=== PATIENT | female | born 1950 | race Caucasian/White ===

== ENCOUNTER 2025-06-25 03:25 | Inpatient (IN) | payer BC, SELFPAY ==
[2025-06-24 20:46] VITALS: BP 123/80
[2025-06-24 20:48] VITALS: BP 123/80
--- NOTE | 2025-06-24 20:58 | ED.GENMED ---
History of Present Illness
<MARGARITA Zapata - Last Filed: 06/25/25 09:32>
General
Chief Complaint: Abdominal Pain
Source: patient
Exam Limitations: none
Time Seen by Provider: 06/24/25 20:47
Nursing documentation reviewed up to this point in time: agreed with
History of Present Illness
History of Present Illness:
pt is a 75 yr old female with past medical history of CLL (followed by banjo repair person outside of this hospital) , E. coli UTI(recent antibiotics several weeks ago) who presents to the ER for evaluation. Patient reports she was out today had pizza
[place]
She reports while driving home she started to feel cramping and nausea. Her daughter was driving and I drove her to her [facility]. While there she had multiple episodes of diarrhea and vomiting. Patient presented here via EMS and had episodes of
incontinence while in the ambulance en route to the hospital. Patient reports her cramps are much better. She is mildly nauseous.
Phy Exam
<MARGARITA Zapata - Last Filed: 06/25/25 09:32>
General Physical Exam
General Presentation: no apparent distress
General age: appears stated age
General Skin: warm and dry
General Habitus: normal
General Mental: alert
General Hydration: appears well hydrated
Gastrointestinal Exam
Gastrointestinal Exam: non tender and soft
Neurological Exam
Neurological Exam: alert and oriented x3
Musculoskeletal Exam
Musculoskeletal Exam: full ROM
Skin Exam
Skin Exam: normal color and warm/dry
Psychiatric Exam
Psychiatric Exam: normal mood/affect
Sepsis
<MARGARITA Zapata - Last Filed: 06/25/25 09:32>
Sepsis Screening
Sepsis Assessment: Sepsis Ruled Out
Sepsis Screen
Sepsis Screen: Sepsis Ruled Out
Date: 06/25/25
Time: 09:32
Course
<MARGARITA Zapata - Last Filed: 06/25/25 09:32>
Orders/Labs/Results
Orders:
Orders
06/24/25 21:37
IV Insert/Care/Rem.- Treatment PRN
Urinalysis Reflex To Culture Urgent
Date Specimen was Collected: 06/25/25
Time Specimen was Collected: 09:28
0.9% Sodium Chloride 1000 ml [Nss] 1,000 ml IV BOLUS
Ondansetron Injectable [Zofran] 4 mg IV NOW STA
06/24/25 21:39
Complete Blood Count/With Diff Urgent
Comprehensive Metabolic Panel Urgent
06/24/25 21:53
Iohexol [Omnipaque] See Protocol PO NOW STA
06/24/25 22:18
Stool Culture Urgent
JEN Source: Feces/Stool
Specimen Description:
Date Specimen was Collected: 06/24/25
Time Specimen was Collected: 22:17
06/25/25 00:02
Add On - Microbiology Urgent
Tests Added?: c diff tox
06/25/25 00:15
CT Abd/pel W Iv And Oral Contr Urgent
Reason For Exam: pain n/v/d
06/25/25 01:20
LevoFLOXacin 500 MG/100 ML [Levaquin] 500 mg in 100 ml IV NOW
MetroNIDAZOLE 500 MG/100 ML [Flagyl 500 mg] 100 ml IV NOW
06/25/25 01:52
Lactic Acid Q4H
Comment: CANCEL 2nd LACTIC ACID IF 1st LACTIC ACID IS LESS THAN 2
06/25/25 02:00
0.9% Sodium Chloride 500 ml [Nss] 500 ml IV 100 mls/hr
06/25/25 02:56
CDIFF [C difficile Antigen & Toxins] Urgent
JEN Source: Feces/Stool
Specimen Description:
06/25/25 03:10
Admit/Transfer Patient As Directed
Co-Sign Provider:
Level of Care: Inpatient admission
Assign to:: Medical/Surgical
Physician / Group: Malik
Diagnosis: Colitis
Reason for Hospitalization: Colitis
Expected length of stay greater than two midnights?: Yes
ELOS- Estimated Length of Stay in days: 3
I certify the patient meets the requirements for IP care: Yes
Ova & Parasites Giardia/Crypto AG [Giardia/Cryptosporidium Ag] Urgent
JEN Source: Feces/Stool
Specimen Description:
PRN Pain Medication Management As Directed
May give lesser potent ordered pain med per pt: Yes
preference::
Protocol:: Medication orders for pain may be administered in a
manner that supports deferring to patient preference
when the pt is:
- Requesting an ordered lesser potent pain medication.
Least to most potent pain medications are defined
as: acetaminophen < NSAID < tramadol < opioids
(morphine, oxycodone, hydromorphone).
- Requesting a lesser dose of the same medication IF
ORDERED.
- Requesting a less intrusive route of administration
if both routes are prescribed by the provider (PO <
IV).
06/25/25 03:11
Code Status As Directed
Resuscitation Status: Full Code
06/25/25 04:22
Acetaminophen [Tylenol] 650 mg PO Q4HPRN PRN
KCl 20 Meq/0.9%Sodchl 1000 ml [NSS with KCL 20 MEQ] 20 meq in 1,000 ml IV 125 mls/hr
Ondansetron Injectable [Zofran] 4 mg IV Q6HPRN PRN
06/25/25 04:22
Activity As Directed
Activity Level: Ambulate
I/O [Intake/ Output] As Directed
Frequency: Per unit guidelines
Pneumatic Compression Sleeves As Directed
Type: Knee high
Vital Signs As Directed
Frequency: Per unit guidelines
Weight As Directed
Frequency: Daily
Oxygen Therapy [O2 Therapy] [RESP] Routine
Titrate/Wean O2 to maintain O2 sat greater than (%): 94
DX Deep Vein Thrombosis Video Routine
06/25/25 Breakfast
BRAT
At Your Request: Full Participation
06/25/25 06:03
Basic Metabolic Panel IN AM
Complete Blood Count/No Diff IN AM
06/25/25 08:00
Bupropion(24Hr)Extended Releas [WELLBUTRIN XL (24 hour extended release)] 150 mg PO DAILY
Lisinopril [Zestril] 5 mg PO DAILY
Loratadine [Claritin] 10 mg PO DAILY
Pantoprazole [Protonix] 40 mg PO DAILY
06/25/25 10:00
MetroNIDAZOLE 500 MG/100 ML [Flagyl 500 mg] 100 ml IV Q12H
06/25/25 22:00
CefTRIAXone [Rocephin] 1,000 mg IV Q24H
06/25/25 22:18
C difficile Antigen & Toxins Urgent
JEN Source: ST
Specimen Description:
Date Specimen was Collected: 06/24/25
Time Specimen was Collected: 22:17
Abnormal Lab Results
06/24/25
21:39
WBC 25.6 H 10^3/uL
(4.8-10.8)
MPV 10.8 H fL
(7.4-10.4)
Abs Immat Gran (auto) 0.2 H 10^3/uL
(0-0.05)
Absolute Lymphs (auto) 14.9 H 10^3/uL
(1.2-3.4)
Absolute Monos (auto) 4.8 H 10^3/uL
(0.1-0.6)
Immature Gran % 0.6 H %
(0-0.5)
Neutrophils % 22.1 L %
(42.2-75.2)
Lymphocytes % 58.3 H %
(20.5-51.1)
Monocytes % 18.6 H %
(1.7-9.3)
Carbon Dioxide 21 L mmol/L
(22-30)
BUN 21 H mg/dl
(7-17)
Glucose 138 H mg/dl
(70-99)
Alkaline Phosphatase 34 L U/L
(38-126)
06/24/25 21:39
06/24/25 21:39
Vital Signs
Initial and Last Documented VS:
Initial Vital Signs
BP
123/80
06/24/25 20:46
Last Documented Vital Signs
Temp Pulse Resp BP Pulse Ox
98.7 F 68 18 134/70 96
06/25/25 07:15 06/25/25 07:15 06/25/25 07:15 06/25/25 07:15 06/25/25 07:15
Crop Research Scientist consulted with Physician
Crop Research Scientist consulted with physician?: Yes (noh )
Name of Physician Consulted: Noh
<Emmanuel Byers MD - Last Filed: 06/25/25 01:23>
Orders/Labs/Results
Orders:
Orders
06/24/25 21:37
IV Insert/Care/Rem.- Treatment PRN
Urinalysis Reflex To Culture Urgent
Date Specimen was Collected: 06/25/25
Time Specimen was Collected: 09:28
0.9% Sodium Chloride 1000 ml [Nss] 1,000 ml IV BOLUS
Ondansetron Injectable [Zofran] 4 mg IV NOW STA
06/24/25 21:39
Complete Blood Count/With Diff Urgent
Comprehensive Metabolic Panel Urgent
06/24/25 21:53
Iohexol [Omnipaque] See Protocol PO NOW STA
06/24/25 22:18
Stool Culture Urgent
JEN Source: Feces/Stool
Specimen Description:
Date Specimen was Collected: 06/24/25
Time Specimen was Collected: 22:17
06/25/25 00:02
Add On - Microbiology Urgent
Tests Added?: c diff tox
06/25/25 00:15
CT Abd/pel W Iv And Oral Contr Urgent
Reason For Exam: pain n/v/d
06/25/25 01:20
LevoFLOXacin 500 MG/100 ML [Levaquin] 500 mg in 100 ml IV NOW
MetroNIDAZOLE 500 MG/100 ML [Flagyl 500 mg] 100 ml IV NOW
06/25/25 01:52
Lactic Acid Q4H
Comment: CANCEL 2nd LACTIC ACID IF 1st LACTIC ACID IS LESS THAN 2
06/25/25 02:00
0.9% Sodium Chloride 500 ml [Nss] 500 ml IV 100 mls/hr
06/25/25 02:56
CDIFF [C difficile Antigen & Toxins] Urgent
JEN Source: Feces/Stool
Specimen Description:
06/25/25 03:10
Admit/Transfer Patient As Directed
Co-Sign Provider:
Level of Care: Inpatient admission
Assign to:: Medical/Surgical
Physician / Group: Malik
Diagnosis: Colitis
Reason for Hospitalization: Colitis
Expected length of stay greater than two midnights?: Yes
ELOS- Estimated Length of Stay in days: 3
I certify the patient meets the requirements for IP care: Yes
Ova & Parasites Giardia/Crypto AG [Giardia/Cryptosporidium Ag] Urgent
JEN Source: Feces/Stool
Specimen Description:
PRN Pain Medication Management As Directed
May give lesser potent ordered pain med per pt: Yes
preference::
Protocol:: Medication orders for pain may be administered in a
manner that supports deferring to patient preference
when the pt is:
- Requesting an ordered lesser potent pain medication.
Least to most potent pain medications are defined
as: acetaminophen < NSAID < tramadol < opioids
(morphine, oxycodone, hydromorphone).
- Requesting a lesser dose of the same medication IF
ORDERED.
- Requesting a less intrusive route of administration
if both routes are prescribed by the provider (PO <
IV).
06/25/25 03:11
Code Status As Directed
Resuscitation Status: Full Code
06/25/25 04:22
Acetaminophen [Tylenol] 650 mg PO Q4HPRN PRN
KCl 20 Meq/0.9%Sodchl 1000 ml [NSS with KCL 20 MEQ] 20 meq in 1,000 ml IV 125 mls/hr
Ondansetron Injectable [Zofran] 4 mg IV Q6HPRN PRN
06/25/25 04:22
Activity As Directed
Activity Level: Ambulate
I/O [Intake/ Output] As Directed
Frequency: Per unit guidelines
Pneumatic Compression Sleeves As Directed
Type: Knee high
Vital Signs As Directed
Frequency: Per unit guidelines
Weight As Directed
Frequency: Daily
Oxygen Therapy [O2 Therapy] [RESP] Routine
Titrate/Wean O2 to maintain O2 sat greater than (%): 94
DX Deep Vein Thrombosis Video Routine
06/25/25 Breakfast
BRAT
At Your Request: Full Participation
06/25/25 06:03
Basic Metabolic Panel IN AM
Complete Blood Count/No Diff IN AM
06/25/25 08:00
Bupropion(24Hr)Extended Releas [WELLBUTRIN XL (24 hour extended release)] 150 mg PO DAILY
Lisinopril [Zestril] 5 mg PO DAILY
Loratadine [Claritin] 10 mg PO DAILY
Pantoprazole [Protonix] 40 mg PO DAILY
06/25/25 10:00
MetroNIDAZOLE 500 MG/100 ML [Flagyl 500 mg] 100 ml IV Q12H
06/25/25 22:00
CefTRIAXone [Rocephin] 1,000 mg IV Q24H
06/25/25 22:18
C difficile Antigen & Toxins Urgent
JEN Source: ST
Specimen Description:
Date Specimen was Collected: 06/24/25
Time Specimen was Collected: 22:17
Abnormal Lab Results
06/24/25
21:39
WBC 25.6 H 10^3/uL
(4.8-10.8)
MPV 10.8 H fL
(7.4-10.4)
Abs Immat Gran (auto) 0.2 H 10^3/uL
(0-0.05)
Absolute Lymphs (auto) 14.9 H 10^3/uL
(1.2-3.4)
Absolute Monos (auto) 4.8 H 10^3/uL
(0.1-0.6)
Immature Gran % 0.6 H %
(0-0.5)
Neutrophils % 22.1 L %
(42.2-75.2)
Lymphocytes % 58.3 H %
(20.5-51.1)
Monocytes % 18.6 H %
(1.7-9.3)
Carbon Dioxide 21 L mmol/L
(22-30)
BUN 21 H mg/dl
(7-17)
Glucose 138 H mg/dl
(70-99)
Alkaline Phosphatase 34 L U/L
(38-126)
06/24/25 21:39
06/24/25 21:39
Vital Signs
Initial and Last Documented VS:
Initial Vital Signs
BP
123/80
06/24/25 20:46
Last Documented Vital Signs
Temp Pulse Resp BP Pulse Ox
98.7 F 68 18 134/70 96
06/25/25 07:15 06/25/25 07:15 06/25/25 07:15 06/25/25 07:15 06/25/25 07:15
<MARGARITA Zapata - Last Filed: 06/25/25 09:32>
MDM/Problems Addressed
MDM/Problems Addressed:
As documented patient is a 75-year-old female with history of CLL presented with nausea vomiting diarrhea and abdominal cramping. While while here patient has had multiple episodes of diarrhea now bloody diarrhea culture sent. She does have a
history of CLL and white count is elevated at 25,000 with no previous labs. No treatment for CLL patient is followed by an oncologist outside his hospital.
With persistent bloody diarrhea CAT scan ordered pending at this time. Care of patient transferred to DR Byers. Patient has history of E. coli UTI last on antibiotics several weeks ago C. difficile culture and stool culture ordered
<MARGARITA Zapata - Last Filed: 06/25/25 09:32>
*Radiology
Radiology exam reviewed: radiology read reviewed
*Pulse Oximetry
SaO2: 96
Oxygen Mode of Delivery: Room air
Patient hypoxic: no
*Critical Care Note
Total Time (30-74mins, 75-104mins- exclusive of procedures): Not Applicable
<Emmanuel Byers MD - Last Filed: 06/25/25 01:23>
Update Note
Update Note:
CT report reviewed and discussed with patient. In light of patient's multiple episodes of bloody diarrhea ED, along with significant leukocytosis as well as CT findings, patient will be admitted for IV antibiotics and IV fluids.
C. difficile toxin and stool culture pending.
ED Attending Note
<MARGARITA Zapata - Last Filed: 06/25/25 09:32>
-
Portions of this chart may have been created with voice recognition software.� Occasional wrong word or��sound alike� substitutions may have occurred due to the inherent limitations of voice recognition software.
Discharge Plan
Departure
Patient Disposition: Admit
Date of Disposition: 06/25/25
Time of Disposition: 01:22
Admit to: Med/Surg
Presentation/result/management discussed w/ accepting MD/DO: Hospitalist
Discharge Problem:
Colitis
Interventions
Interventions:
*Risk Screen - Suicide Last Done: 06/24/25 20:48
*General Assessment Last Done: 06/24/25 20:48
*Neglect/Abuse Screening Last Done: 06/24/25 20:48
*ED- Fall Risk Assessment Last Done: 06/24/25 20:48
*ED COVID-19 Vaccine History Last Done: 06/25/25 04:36
*Nursing Disposition Last Done: 06/25/25 04:18
CQ-Gelcvj-Rmawfqejru Assessment Last Done: 06/24/25 21:23
Discharge Date and Time
Discharge Date/Time: 06/25/25 04:18
[2025-06-24 21:02] VITALS: BP 144/73
[2025-06-24 21:22] VITALS: BMI 21.9
[2025-06-24 21:37] VITALS: BP 124/66
[2025-06-24] MEDS: NSS 1000 IV (21:39)
[2025-06-24] MEDS: ZOFRAN 4 MG IV (21:43)
[2025-06-24 21:55] LABS: Hematocrit 40.0 % (37.0-47.0); Hemoglobin 13.8 g/dL (12.0-16.0); Mean Corp Hgb Conc. 34.5 g/dL (33.0-37.0); Mean Corpuscular Volume 89.7 fL (81.0-99.0); Platelet Count 210 10^3/uL (130-400); Red Cell Dist. Width 13.4 % (11.5-14.5)
[2025-06-24 22:00] VITALS: BP 134/74
[2025-06-24] MEDS: OMNIPAQUE 50 ML PO (22:14)
[2025-06-24 22:16] LABS: ALT (SGPT) 24 U/L (0-35); AST (SGOT) 30 U/L (14-36); Albumin 4.8 g/dl (3.5-5.0); Alkaline Phosphatase 34 U/L (38-126); Blood Urea Nitrogen 21 mg/dl (7-17); Calcium 9.6 mg/dl (8.4-10.2); Carbon Dioxide 21 mmol/L (22-30); Chloride 105 mmol/L (98-107); Estimated Creatinine Clearance 49 ml/min; Glucose 138 mg/dl (70-99); Potassium 3.5 mmol/L (3.5-5.1); Sodium 138 mmol/L (135-145); Total Protein 7.5 g/dl (6.3-8.2); eGFR > 60.00
[2025-06-24 22:20] LABS: Nucleated Red Blood Cells % 0.1 %
[2025-06-24 23:00] VITALS: BP 123/68
[2025-06-25] VITALS (10 sets, daily range): BP systolic 123–165; BP diastolic 67–87; BMI 21.7
[2025-06-25] MEDS: NSS 500 IV (01:43)
[2025-06-25] MEDS: LEVAQUIN 100 IV (01:43)
[2025-06-25] MEDS: FLAGYL 500 MG 100 IV ×2 (02:47→09:36)
--- NOTE | 2025-06-25 03:13 | HPS.HSE ---
Family Physician
-
Family Physician: NOT KNOW UNKNOWN - PT DOES
Chief Complaint
-
N/V/D
History of Present Illness
Patient is a 75y F with PMH significant for CLL who presents to ED complaining of crampy abdominal pain, diaphoresis and N/V/D. Patient states that she has been feeling well until this evening. Patient states that she felt sweaty and flushed
this evening on her way home from dinner - around 7:30 PM. She stopped at a restaurant and went into the bathroom where she had multiple episodes of N/V/D. She was somewhat lightheaded and diaphoretic. Patient felt like she was in there only a
brief time; however, daughter noted that she was in the bathroom for quite a long time and 911 was called. Patient was hypotensive on initial assessment by EMS. She was brought to the ED for further evaluation.
Patient states that she had non-bloody emesis and multiple, watery, non-bloody stools.
Patient had brunch consisting of crepes and dinner of pizza today with multiple friends - none of whom have developed similar symptoms.
She also notes that she was swimming in the [place] today - also with her group of friends.
Patient has had issues recently with resistant E coli urinary tract infections.
She has been seen by Infectious Disease at [facility] (she lives in [place]) and has a Rx for fosfomycin that she takes for new urinary symptoms.
She took a dose of fosfomycin most recently on 06/12 for dysuria and frequency. Her urinary symptoms improved and she denies ay at present.
She was also started on IVIG infusions monthly about 6 months ago - her most recent infusion was this past Thursday.
Medical History
Past Medical History
Past Medical History: Reports Other
Additional Past Medical History:
CLL
Hypertension
Recurrent UTI
Past Surgical History: Reports Other
Additional Past Surgical History:
T&A
Social History
Tobacco: Non-smoker
Alcohol: Occasional
Drug: None
Family History
Family History: Not pertinent
Allergies / Home Medications
Allergies reflects when Allergies were last updated in [employer].
Home Medications with original date entered in [employer]
Allergy/Medication List:
Allergies
Allergy/AdvReac Type Severity Reaction Status Date / Time
No Known Allergies Allergy Unverified 06/24/25 20:47
Home Medications
Vitamin D3 PO DAILY 06/25/25
alendronate 5 mg tablet mg PO WEEKLY 06/25/25
bupropion HCl 75 mg tablet 150 mg PO DAILY 06/25/25
lisinopril 5 mg tablet 5 mg PO DAILY 06/25/25
loratadine 10 mg tablet (Claritin) 10 mg PO DAILY 06/25/25
vitamin B complex cap PO DAILY 06/25/25
Review of Systems
-
History Source: Patient
A 12 point ROS was completed and negative except as noted: Yes
Constitutional: Reports Fatigue and Chills; Denies Fever
EENT: Denies Sore Throat
Respiratory: Denies Cough or Trouble Breathing
Cardiac: Reports Diaphoresis; Denies Chest Pain or Palpitations
Abdomen/GI: Reports Abdominal Pain, Nausea, Vomiting and Diarrhea; Denies Bloody Stools or Black Stools
: Denies Dysuria, Frequency or Flank Pain
Musculoskeletal: Denies Joint Pain or Edema
Neurological: Denies Dizzy or Headache
Psych: Denies Depression or Anxiety
Physical Exam
Vital Signs
Vital Signs
Temp Pulse Resp BP Pulse Ox
97.9 F 77 14 165/87 99
06/24/25 20:48 06/25/25 02:00 06/25/25 02:00 06/25/25 02:00 06/24/25 20:49
Physical Exam
General: Other (75y F appears fatigued.)
HEENT: Other (Dry MM. Neck supple.)
Respiratory: Clear; No Wheezes, Rales or Rhonchi
Cardiac: S1/S2 and Regular Rhythm; No Murmur
GI: Other (Abdomen is soft. Mildly, diffusely tender. Pos BS.)
Musculoskeletal: No Clubbing, No Cyanosis and No Edema
Neuro: AO x 3
Laboratory Results
-
06/24/25 21:39
06/24/25 21:39
Laboratory Results
Lactic Acid 0.7 mmol/L (0.7-2.0) 06/25/25 01:52
Total Bilirubin 0.7 mg/dl (0.2-1.3) 06/24/25 21:39
AST 30 U/L (14-36) 06/24/25 21:39
ALT 24 U/L (0-35) 06/24/25 21:39
Alkaline Phosphatase 34 U/L (38-126) L 06/24/25 21:39
Impression/Plan
-
A/P: Patient is a 75y F with PMH significant for CLL and recurrent UTI who presents to ED complaining of N/V/D.
Pancolitis
- Admit for further evaluation and treatment.
- Stool studies are pending - will add CDiff given recent abx and O&P given recent river water exposure (though that was just earlier today).
- Continue abx with ceftriaxone and Flagyl pending stool studies / culture data.
- Supportive care with IVFs, antiemetics, etc.
- BRAT diet as tolerated.
- Follow for clinical improvement.
Recurrent UTIs
Abnormal CT
- CT scan in the ED this evening also shows abnormal R kidney enhancement concerning for pyelnonephritis.
- ? if this could reflect change from recent / recurrent infection?
- Patient without current urinary symptoms, flank pain, etc.
- Abx as noted above. Follow-up urinalysis +/- culture.
CLL
- Chronic leukocytosis with recent baseline WBC around 14 per patient.
- On IVIG monthly for recurrent infections as noted above.
- Follow-up with Hematology at [facility] after discharge.
DVT Prophylaxis: SCDs
Code Status: Full
[2025-06-25] MEDS: NSS with KCL 20 MEQ 1000 IV ×3 (05:15→20:47)
[2025-06-25 07:16] LABS: Hematocrit 36.6 % (37.0-47.0); Hemoglobin 12.5 g/dL (12.0-16.0); Mean Corp Hgb Conc. 34.2 g/dL (33.0-37.0); Mean Corpuscular Volume 89.5 fL (81.0-99.0); Platelet Count 173 10^3/uL (130-400); Red Cell Dist. Width 13.6 % (11.5-14.5)
[2025-06-25] MEDS: CLARITIN PO ×2 (07:26→09:07)
[2025-06-25] MEDS: WELLBUTRIN XL (24 hour extended release) PO ×2 (07:26→09:07)
[2025-06-25] MEDS: PROTONIX PO ×2 (07:26→09:07)
[2025-06-25] MEDS: ZESTRIL PO ×2 (07:26→09:07)
[2025-06-25] MEDS: ZOFRAN 4 MG IV ×2 (07:32→20:41)
[2025-06-25 07:49] LABS: Blood Urea Nitrogen 15 mg/dl (7-17); Calcium 8.0 mg/dl (8.4-10.2); Carbon Dioxide 20 mmol/L (22-30); Estimated Creatinine Clearance 74 ml/min; Glucose 131 mg/dl (70-99); Potassium 4.2 mmol/L (3.5-5.1); Sodium 135 mmol/L (135-145); eGFR > 60.00
[2025-06-25 07:53] LABS: Chloride 107 mmol/L (98-107)
[2025-06-25] MEDS: BENTYL 20 MG IM (08:36)
--- NOTE | 2025-06-25 09:19 | CM ---
CM reviewed chart. Pt arrived from home, is I/AMB and ADLs and will have no home needs at dc.
Should pts needs change prior to dc, please consult ISAIAH/DIDIER.
Will continue to follow.
[2025-06-25 09:44] LABS: Urine Character Clear (Clear)
[2025-06-25 10:31] LABS: Urine White Cell 0-2 /HPF (0-5)
--- NOTE | 2025-06-25 11:18 | CON.GI ---
Consultation
-
Date/Time Consultation Requested: 06/25/25 11:02
Date/Time Consultation Performed: 06/25/25 1118
Requesting Provider: Reji Aponte
Performing Provider: Enmanuel Huertas
Reason for Consultation: Hematochezia, pancolitis, (-) C Diff
Medical History
Chief Complaint / HPI
Chief Complaint: N/V/D
History of Present Illness:
Ms. Hightower is a 75 y.o female with a past medical history significant for CLL who presented to the ED with abdominal pain along with nausea/vomiting and initially non-bloody diarrhea. Found to have pancolitis with greatest involvement from the
splenic flexure to the sigmoid colon concerning for infectious colitis. Gastroenterology has been consulted for further evaluation and management.
Patient states she was in her [place] until last evening when she began to feel flushed and sweaty. Denies any recent sick contacts or other fevers or chills. Symptoms started after eating pizza with friends/family where she later developed multiple
episodes of nausea and vomiting as well as nonbloody diarrhea. She felt lightheaded and weak and felt as though she was going to pass out but denies any loss of consciousness. She has never had symptoms like this in the past. Does also note
[place] well with a group of friends. She continues to have significant nonbloody watery diarrhea at the restaurant prompting her to call EMS where she presented to the ER for further evaluation. She denies any chronic
diarrhea, bloody stools, previous abdominal pain or other chronic GI symptoms. She previously underwent a colonoscopy approximately 2 months ago at where she follows closely with her care which was unremarkable. She also
underwent a prior EGD at that time as well which was also unremarkable. She is not on any blood thinners and denies any NSAIDs. Of note, she does have a history of CLL and receives IVIG infusions on a monthly basis and felt to be in remission.
She also follows closely with ID at [facility] due to concern for previous resistant E. coli UTIs. She denies any current symptoms at present. Currently, she is still experiencing ongoing abdominal cramping and recently developed bloody stools
consistent with hematochezia. Otherwise, denies any further fevers or chills.
In the ED, patient was afebrile and HD-stable. Labs notable for BUN 21 and Tax Lawyer 0.9 and normal LFTs. CBC with WBC 25.6, Hgb 13.8, and plts 210. CT Abd/pelvis revealed wall thickening and enhancement diffusely involving the colon, greatest involvement
from the splenic flexure through the sigmoid colon. Findings suggest colitis, most likely infectious colitis. Additionally, patchy areas of decreased enhancement within the right kidney, highly suggestive of pyelonephritis without any evidence for
abscess. Stool studies were obtained and patient was started on empiric IV abx and admitted to medicine for further management.
Past Medical History
Past Medical History: Other (HTN, recurrent UTI, CLL (on IVIG infusions))
Past Surgical History: Other (T&A)
Social History
Tobacco: Non-Smoker
Alcohol: Occasional
Drug: None
Family History
Family History: Reviewed & Not Pertinent
Allergies / Home Medications
Allergy/AdvReac Type Severity Reaction Status Date / Time
No Known Allergies Allergy Unverified 06/24/25 20:47
�Medication �Instructions �Recorded
Vitamin D3 PO DAILY Supplement 06/25/25
alendronate 70 mg tablet 70 mg PO WEEKLY@06 Osteoperosis 06/25/25
bupropion HCl 75 mg tablet 150 mg PO DAILY Depression 06/25/25
lisinopril 5 mg tablet 5 mg PO DAILY Blood Pressure 06/25/25
loratadine 10 mg tablet (Claritin) 10 mg PO DAILY Allergies 06/25/25
vitamin B complex 1 cap PO DAILY Supplement 06/25/25
Review of Systems
-
All other systems: A 12 pt ROS was Negative except as stated above in HPI
Vital Signs
Temp Pulse Resp BP Pulse Ox
98.7 F 68 18 134/70 96
06/25/25 07:15 06/25/25 07:15 06/25/25 07:15 06/25/25 07:15 06/25/25 09:32
Physical Exam
Exam
General: Well Developed, No Apparent Distress and Comfortable
HEENT: Anicteric and Moist Mucous Membranes
Respiratory: Other (Normal WOB on room air)
GI: Soft, Non Distended and Tender (Mild tenderness throughout without any involuntary guarding or rebound tenderness)
Skin: Warm and Dry
Neuro: Nonfocal/Grossly Intact
Psych: Calm
Results
WBC 19.2 10^3/uL (4.8-10.8) H 06/25/25 06:03
Hgb 12.5 g/dL (12.0-16.0) 06/25/25 06:03
Hct 36.6 % (37.0-47.0) L 06/25/25 06:03
MCV 89.5 fL (81.0-99.0) 06/25/25 06:03
Plt Count 173 10^3/uL (130-400) 06/25/25 06:03
Absolute Neuts (auto) 5.7 10^3/uL (1.4-6.5) 06/24/25 21:39
Sodium 135 mmol/L (135-145) 06/25/25 06:03
Potassium 4.2 mmol/L (3.5-5.1) 06/25/25 06:03
Chloride 107 mmol/L (98-107) 06/25/25 06:03
Carbon Dioxide 20 mmol/L (22-30) L 06/25/25 06:03
BUN 15 mg/dl (7-17) 06/25/25 06:03
Creatinine 0.6 mg/dL (0.6-1.0) 06/25/25 06:03
Calcium 8.0 mg/dl (8.4-10.2) L D 06/25/25 06:03
Total Bilirubin 0.7 mg/dl (0.2-1.3) 06/24/25 21:39
AST 30 U/L (14-36) 06/24/25 21:39
ALT 24 U/L (0-35) 06/24/25 21:39
Alkaline Phosphatase 34 U/L (38-126) L 06/24/25 21:39
Diagnostic Image Results: As above. No prior EGD/Colon records for review
Assessment / Plan
-
Ms. Hightower is a 75 y.o female with a past medical history significant for CLL who presented to the ED with abdominal pain along with nausea/vomiting and initially non-bloody diarrhea. Found to have pancolitis with greatest involvement from the
splenic flexure to the sigmoid colon concerning for infectious colitis. Gastroenterology has been consulted for further evaluation and management.
#Pancolitis likely 2/2
#Acute Infectious and #Ischemic
#Bloody Stools
#Nausea/Vomiting
#Hx of CLL (on IVIG Infusions)
#Hx of Resistant E coli (f/w ID)
Impression: Patient presenting with abdominal cramping/discomfort along with nausea/vomiting and initial nonbloody, watery diarrhea found to have pancolitis on CT imaging concerning for acute, infectious colitis. Now with recent progression of
bloody stools along with abdominal cramping. Etiology of symptoms seems most consistent with infectious colitis likely secondary to her prior [place] yesterday afternoon and much less likely related to contaminated food as
without any other sick contacts. Additionally, suspect some component of superimposed ischemic colitis as well given the progression of bloody stools and she was hypotensive when evaluated by EMS on arrival along with her CT imaging demonstrating
marked thickening within the splenic flexure further suggestive of potential ischemic component given watershed involvement of splenic flexure. No concern for inflammatory bowel disease as without any chronicity of symptoms and she previously notes
a prior colonoscopy approximately 2 months ago which was normal at . For now, I would continue empiric IV antibiotics as she is somewhat immunosuppressed given her history of his CLL and receives monthly IVIG infusions. Favor
broadening to IV Zosyn along with continuing IVF to maintain euvolemia and avoiding periods of hypotension.
Recommendations:
- Okay with CLD, defer from advancing today
- Await stool culture and stool O&P, C Diff (-)
- Agree with IV abx given her marked leukocytosis, age and some concern for immunocompromise given her hx of CLL and receives IVIG infusions
- Favor broadening to IV Zosyn 3.375 mg q 6 hours given her hx of prior c/f ESBL
- However, would d/c IV abx if stool culture reveals shiga-toxin producing organism as abx can result in worsening symptoms
- Continue IVF to maintain euvolemia and avoid periods of hypotension given c/f superimposed ischemic colitis
- No plans for a colonoscopy at this time and previous colonoscopy was normal approximately 2 months ago at
- She may follow-up with her primary [employer]er as an outpatient at [facility]
- May use oral Bentyl as needed for spasms/cramps
- Pain control and IV anti-emetics PRN
- Rest of ongoing supportive care as per primary team
Discussed with primary internal medicine team. GI will continue to follow. Please call with any questions or concerns.
Data Reviewed
-
Radiology: Image Personally Visualized and interpreted and Report Reviewed by me
CT Scan: Image Personally Visualized and interpreted and Report Reviewed by me
-
-
Thank you for consultation and allowing me to participate in the patient's care. Please call the electronic maintenance supervisor GI physician during the after hours with any questions or concerns.
[2025-06-25] MEDS: BENTYL 20 MG PO ×2 (11:57→17:03)
[2025-06-25] MEDS: ZOSYN 100 IV ×3 (12:25→23:28)
--- NOTE | 2025-06-25 13:16 | W.PN.UPDATE ---
Update Note
Progress Note Update
Hospitalist H&P from 0313 this morning. I independently evaluated the patient at the bedside. I reviewed the patient's chart. I discussed medical updates with the patient's family at the bedside
71-year-old female with CLL on IVIG, HTN, recurrent UTI with resistant E. coli that presented to the ED with intractable nausea and vomiting, frequent hematochezia that started yesterday. [place] to
symptoms starting. Mentions ingesting some river water from her memory. Also with possible food exposures though group of people she was with did not develop symptoms. AFVSS while here, labs stable. CT A/P showed signs of pancolitis with
greatest involvement of the splenic flexure. Stool cultures, stool O&P obtained and started on IV ceftriaxone and Flagyl in the ED. C. difficile testing ultimately was negative.
Patient states she still feels unwell though slightly improved by time of my evaluation. Cramping abdominal pain responded to dicyclomine
AAO x 4, appears unwell though nontoxic. No FND or cranial nerve deficits. Cardiopulmonary exam benign. Generalized abdomen tenderness without peritoneal signs, otherwise soft and nondistended, slightly reduced bowel sounds. No edema, 2+ pulses,
no rashes, skin warm and dry
Acute gastroenteritis/colitis. Differentials include infectious etiology versus ischemic colitis, may also be multifactorial. C. difficile testing negative, very low suspicion for IBD. CT demonstrated pancolitis with greatest involvement near
splenic flexure. Patient with hypotensive symptoms prior to worsening bowel status. Was started on IV ceftriaxone and Flagyl upon arrival following stool cultures and O&P. Will transition to IV Zosyn, after discussing with gastroenterology, to
cover for resistant species. Follow stool cultures, consider stopping antibiotics if cultures show STEC. Trend CBC and temperature curve, monitor bowel status. Continue maintenance IV fluids and antiemetics. Continue as needed dicyclomine.
Likely will need OP scope unless develops worsening bleeding
CLD pending clinical improvement
SCDs
Full code
Expected discharge in 24 to 48 hours
[2025-06-25] MEDS: TYLENOL 650 MG PO (21:00)
--- NOTE | 2025-06-26 05:41 | W.PN.GI.CBS2 ---
Today's Communication / Plan
-
Continue CLD and favor ongoing IV abx. No plans for a colonoscopy at this time as previously normal 2 months ago. Continue rest of ongoing supportive care as detailed below. GI will continue to follow.
Assessment / Plan
-
Ms. Hightower is a 75 y.o female with a past medical history significant for CLL who presented to the ED with abdominal pain along with nausea/vomiting and initially non-bloody diarrhea. Found to have pancolitis with greatest involvement from the
splenic flexure to the sigmoid colon concerning for infectious colitis. Gastroenterology has been consulted for further evaluation and management.
#Pancolitis likely 2/2
#Acute Infectious and #Ischemic
#Bloody Stools
#Nausea/Vomiting
#Hx of CLL (on IVIG Infusions)
#Hx of Resistant E coli (f/w ID)
Impression: Patient presenting with abdominal cramping/discomfort along with nausea/vomiting and initial nonbloody, watery diarrhea found to have pancolitis on CT imaging concerning for acute, infectious colitis. Now with recent progression of
bloody stools along with abdominal cramping. Etiology of symptoms seems most consistent with infectious colitis likely secondary to [place] and much less likely related to contaminated food as
without any other sick contacts. Additionally, suspect some component of superimposed ischemic colitis as well given the progression of bloody stools and she was hypotensive when evaluated by EMS on arrival along with her CT imaging demonstrating
marked thickening within the splenic flexure further suggestive of potential ischemic component given watershed involvement of splenic flexure. No concern for inflammatory bowel disease as without any chronicity of symptoms and she previously notes
a prior colonoscopy approximately 2 months ago which was normal at [facility]. For now, I would continue empiric IV antibiotics as she is somewhat immunosuppressed given her history of his CLL and receives monthly IVIG infusions. Favor
broadening to IV Zosyn along with continuing IVF to maintain euvolemia and avoiding periods of hypotension.
Recommendations:
- Okay with CLD, defer from advancing today
- C Diff (-), cryptosporidium/giardia (-), pending stool culture
- Agree with IV abx given her marked leukocytosis, age and some concern for immunocompromise given her hx of CLL and receives IVIG infusions
- Continue empiric IV Zosyn 3.375 mg q 6 hours given her hx of prior c/f ESBL
- However, would d/c IV abx if stool culture reveals shiga-toxin producing organism (ie STEC, etc) as abx can result in worsening symptoms
- Continue IVF to maintain euvolemia and avoid periods of hypotension given c/f superimposed ischemic colitis
- No plans for a colonoscopy at this time and previous colonoscopy was normal approximately 2 months ago at [facility]
- She may follow-up with her primary Street Worker as an outpatient at [place]
- May use oral Bentyl as needed for spasms/cramps
- Pain control and IV anti-emetics PRN
- Rest of ongoing supportive care as per primary team
GI will continue to follow. Please call with any questions or concerns.
Subjective
Subjective
Date of Service: June 26, 2025
- No acute events overnight
- C Diff (-), cryptosporidium/giardia (-), pending stool culture
- Otherwise, no acute events overnight
Resting comfortably in bed, still with lower abdominal pain but denies any worsening symptoms. Having ongoing diarrhea, but more formed brown stool and less blood. No other fevers, chills or other constitutional symptoms.
Objective
Data Reviewed
Laboratory Data:
Laboratory Results
06/25/25 06:03
06/25/25 06:03
Laboratory Results
Total Bilirubin 0.7 mg/dl (0.2-1.3) 06/24/25 21:39
AST 30 U/L (14-36) 06/24/25 21:39
ALT 24 U/L (0-35) 06/24/25 21:39
Alkaline Phosphatase 34 U/L (38-126) L 06/24/25 21:39
Vital Signs and I&O:
Vital Signs
Temp Pulse Resp BP Pulse Ox
99.2 F 64 17 138/75 95
06/25/25 23:10 06/25/25 23:10 06/25/25 23:10 06/25/25 23:10 06/25/25 23:10
I&O
06/24/25 06/25/25 06/26/25
06:59 06:59 06:59
Intake Total 1020 / 1020
Balance 1020 / 1020
Physical Exam
Physical Exam
HEENT: Anicteric and Moist mucous membranes
Pulmonary: Other (Normal WOB on room air)
GI: Soft, Non Distended and Tender (Mild to moderate tenderness with voluntary guarding; no rebound tenderness or involuntary guarding)
Extremities: No Edema
Neuro: Non Focal
[2025-06-26 05:54] VITALS: BMI 22.6
[2025-06-26] MEDS: BENTYL 20 MG PO ×3 (05:54→18:45)
[2025-06-26] MEDS: ZOSYN 100 IV ×4 (05:54→23:24)
[2025-06-26] MEDS: NSS with KCL 20 MEQ 1000 IV (05:55)
[2025-06-26 07:07] LABS: Hematocrit 33.9 % (37.0-47.0); Hemoglobin 11.7 g/dL (12.0-16.0); Mean Corp Hgb Conc. 34.5 g/dL (33.0-37.0); Mean Corpuscular Volume 88.7 fL (81.0-99.0); Platelet Count 142 10^3/uL (130-400); Red Cell Dist. Width 13.9 % (11.5-14.5)
[2025-06-26 07:30] VITALS: BP 141/73
[2025-06-26 07:37] LABS: ALT (SGPT) 18 U/L (0-35); AST (SGOT) 23 U/L (14-36); Albumin 3.2 g/dl (3.5-5.0); Alkaline Phosphatase 34 U/L (38-126); Blood Urea Nitrogen 4 mg/dl (7-17); Calcium 7.7 mg/dl (8.4-10.2); Carbon Dioxide 23 mmol/L (22-30); Chloride 108 mmol/L (98-107); Estimated Creatinine Clearance 74 ml/min; Glucose 148 mg/dl (70-99); Potassium 3.6 mmol/L (3.5-5.1); Sodium 134 mmol/L (135-145); Total Protein 5.6 g/dl (6.3-8.2); eGFR > 60.00
[2025-06-26 07:50] LABS: Absolute Neutrophils -Man Diff 13.5 10^3/uL (1.4-6.5); Platelets Checked Yes
[2025-06-26 07:51] LABS: Normal RBC Morphology Yes; Total Cells Counted 100
[2025-06-26] MEDS: WELLBUTRIN XL (24 hour extended release) 150 MG PO (09:41)
[2025-06-26] MEDS: CLARITIN 10 MG PO (09:41)
[2025-06-26] MEDS: ZESTRIL 5 MG PO (09:41)
[2025-06-26] MEDS: PROTONIX 40 MG PO (09:41)
[2025-06-26] MEDS: TYLENOL 650 MG PO ×2 (09:42→18:45)
--- NOTE | 2025-06-26 13:04 | CON.ID ---
Consultation
-
Date/Time Consultation Requested: June 26, 2025 1125
Date/Time Consultation Performed: June 26, 2025 1310
Requesting Provider: Dr. Dustin Diaz
Performing Provider: Dr. Gladys Sibley
Reason for Consultation: Infectious Colitis
Chief Complaint / Past History
Chief Complaint
Bloody diarrhea
History of Present Illness
History obtained from the patient as well as from her daughter at bedside. She has history of CLL on monthly IVIG, recurrent ESBL�E. coli UTI who lives in [facility] and came up to visit her daughter in [place] over the weekend. On
Thursday, June 24, they went to [facility] and spent the day innertubing in the [facility]. That evening they had pizza, at a restaurant, which everybody shared. Afterwards on the way home, patient felt sweaty and had to stop at
[employer]. No fevers. She had nausea, vomiting, abdominal cramping, multiple bloody diarrhea. No one else in the group sick. She felt dizzy. Blood pressure was low in the 70s. She was therefore directed to come to the hospital. White count
25.6, her baseline being 12-13. CT of the abdomen pelvis showed pancolitis, worse from splenic feck flexure to the sigmoid colon. She received levofloxacin/metronidazole in the ER then changed to Zosyn. She reports yesterday stool was all liquid
blood. Today there is some brown liquid stool mixed with the blood. She still has cramping abdominal pain slightly better. No further nausea. She never had fevers. Currently no urine symptoms, no flank pain.
Past History
Additional Past Medical History:
CLL, monthly IVIG
HTN
ESBL-E.coli recurrent UTI
Allergy History:
No Known Allergies Allergy (Unverified 06/24/25 20:47)
Medications Reviewed: Yes
Current Antibiotics:
Zosyn d2
Social History
Tobacco: Non-Smoker
Alcohol: Occasional
Drug: None
Employment: Employed (Part-time office work)
Family History
Family History: Not Pertinent
Review of Systems
Review of Systems
General: Change in Appetite and Other (+ sweats); Negative Fever or Chills
HEENT: Negative Stiff Neck, Sinus Problems, Headache or Pharyngitis
Cardiovascular: Negative Chest Pain or Dyspnea
Respiratory: Negative Dyspnea or Cough
Gasteroenterology: Diarrhea
Genital / Urological: Negative Dysuria, Hematuria or Flank Pain
Endocrine: Weakness
Musculoskeletal: Negative Arthralgias or Myalgias
Skin / Hair / Nails: Negative Rash
All systems: All other systems were reviewed and were negative
Vital Signs
Temp Pulse Resp BP Pulse Ox
98.8 F 66 16 141/73 93
06/26/25 07:30 06/26/25 09:41 06/26/25 07:30 06/26/25 09:41 06/26/25 07:30
Physical Exam
Physical Exam
Constitutional: No Acute Distress and Non-toxic
Head: Other (No frontal or maxillary sinus tenderness)
Eyes: No Conjunctival Hemorrhage and Sclera Anicteric
Cardiovascular: Regular Rate and S1/S2
Pulmonary: Clear
Gastrointestinal: Soft, Tender (diffuse), Distended (mild) and Normal Bowel Sounds
Genito-Urinary: Negative CVA Tenderness
Extremities: Negative Edema
Musculoskeletal: Negative Spinal Tenderness
Neurological: AO x 3
Lab / Diagnostic Study Results
06/26/25 06:53
06/26/25 06:53
Abs Immat Gran (auto) 0.2 10^3/uL (0-0.05) H 06/24/25 21:39
Absolute Neuts (auto) 5.7 10^3/uL (1.4-6.5) 06/24/25 21:39
Absolute Lymphs (auto) 14.9 10^3/uL (1.2-3.4) H 06/24/25 21:39
Absolute Monos (auto) 4.8 10^3/uL (0.1-0.6) H 06/24/25 21:39
Absolute Basos (auto) 0.1 10^3/uL (0-0.2) 06/24/25 21:39
Total Counted 100 06/26/25 06:53
Immature Gran % 0.6 % (0-0.5) H 06/24/25 21:39
Neutrophils % 22.1 % (42.2-75.2) L 06/24/25 21:39
Lymphocytes % 58.3 % (20.5-51.1) H 06/24/25 21:39
Monocytes % 18.6 % (1.7-9.3) H 06/24/25 21:39
Eosinophils % 0.1 % (0-6) 06/24/25 21:39
Basophils % 0.3 % (0-2) 06/24/25 21:39
Abs Neuts (Manual) 13.5 10^3/uL (1.4-6.5) H 06/26/25 06:53
Segmented Neutrophils 60 % (42-75) 06/26/25 06:53
Band Neutrophils 1 % (0-3) 06/26/25 06:53
Lymphocytes (Manual) 32 % (20-51) 06/26/25 06:53
Lactic Acid Cancelled 06/25/25 05:30
Ur Squamous Epith Cells 3-5 /LPF (Few) 06/25/25 09:39
Microbiology Results
Micro:
06/24/25 22:18 Salmonella/Shigella Culture - Preliminary
Feces/Stool Culture in Progress
Campylobacter Culture - Preliminary
Culture in Progress
Shiga Toxin Test - Final
No E. coli Shiga Toxin 1 or 2 detected.
06/24/25 22:18 Cryptosporidium/Giardia - Final
Feces/Stool Negative for Cryptosporidium and/or Giardia Lamblia
antigens.
06/25/25 22:18 C. difficile GDH Antigen & Toxins - Final
Feces/Stool Negative for toxigenic C.difficile
06/25/25 CT a/p: Wall thickening and enhancement diffusely involving the colon, greatest involvement from the splenic flexure through the sigmoid colon. Findings suggest colitis, most likely infectious colitis. Inflammatory bowel disease would be the
main differential consideration. Patchy areas of decreased enhancement within the right kidney, highly suggestive of pyelonephritis. No evidence for abscess.
Assessment / Plan
# Pancolitis
# N/V Bloody diarrhea
# Relative leukocytosis
# Hx of CLL on monthly IVIg
- C. diff neg
- Shiga-toxin negative
- Stool cx pending including Salmonella, Shigella, Campylobacter.
- Will add-on norovirus
- To consider Aeromonas vs vibrio parahaemolyticus gasteroenteritis.
- Continue Zosyn for now. Consider de-escalate to ceftriaxone.
- Follow wbc, stool output
# Hx recurrent MDR ESBL-Ecoli UTI
- currently no urine sxs, no flank pain - does not correlate with CT finding of right 'pyelonephritis'
- of note, gastroenteritis is not associated with ESBL-Ecoli
- place in contact isolation
--- NOTE | 2025-06-26 15:17 | W.PN.HOSP.TC ---
Addendum entered and electronically signed by Ashley Velasquez MD 06/26/25 16:32:
I saw and evaluated the patient independently. I reviewed the resident�s note and agree with findings and plan as documented by Dr. Escalera.
GENERAL: well developed, well nourished, female in no apparent distress
HEENT: NC/AT--no O2 requirements
HEART: regular rate and rhythm, +S1, +S2, URMILA
LUNGS : clear to auscultation bilaterally
ABDOM: soft, tender diffusely without guarding or rebound, nondistended, + bowel sounds
EXT: no cyanosis, clubbing, or edema
NEUROLOGIC: grossly intact
abdominal pain--likely due to Acute infectious colitis (from ingesting river water), less likely food borne since everyone ate the same thing and no one else sick, ischemic colitis since BP dropped and greatest involvement from the splenic flexure
through the sigmoid colon (watershed area)--presenting with bloody diarrhea at times--apprec GI--consult ID--cont clear liquids--cont IV zosyn for now--C. diff, cryptosporidium/giardia, E. coli Shiga toxin neg--waiting for rest of stool
studies--cont IVF--pain control--bentyl as needed for spasms--will need outpt GI follow up with primary GI
Hx recurrent MDR ESBL E. coli UTI--GI and ID following
New murmur--pt has never been told of one--will need outpt ECHO UNLESS blood cultures return positive then will need inpt ECHO but gm neg endocarditis is of low clinical concern
History of CLL on IVIG infusions--Continue home Lynparza
Essential Hypertension-- Continue home lisinopril
Allergies- Continue home Claritin 10 mg p.o. daily
Depression-- Continue home Wellbutrin XL 150 mg daily
DVT proph
code status -- FULL CODE
Original Note:
Today's Communication/Plan
-
- Continue IV Zosyn and supportive care
- inpatient vs outpatient echo iso c/f endocarditis
- f/u stool cultures, norovirus
- consider advancing diet tomorrow
Assessment / Plan
Assessment / Plan
Ms. Hightower is a 75 y.o female with a history of hypertension, CLL on IVIG, recurrent UTI and pyelonephritis with antibiotic resistant E. coli for which she was hospitalized in November 2024 and follows with outpatient ID in the [facility]
system. She presented to the ED on 06/25/2025 with nausea, vomiting, hematochezia, and initially bloody diarrhea, and CT abdomen/pelvis concerning for infectious colitis in the setting of her recent ingestion of [place] river water. She was
initially started on IV ceftriaxone and Flagyl upon arrival and then transition to IV Zosyn per GI, who was following care. Stool cultures are pending and we are providing supportive care with antiemetics and dicyclomine. Of note patient had a
normal colonoscopy 2 months ago at [facility] [place] and per ID, gastroenteritis is not associated with ESBL E. coli. given patient's history of pyelonephritis by ESBL-E coli, ID was consulted on 06/26/2025 for further recs. Physical exam today
showed a systolic murmur that was new to the patient's knowledge. Given immunocompromise status and infectious of unknown etiology, we will consider inpatient versus outpatient echo for concern of endocarditis if she does not improve.
#Acute infectious colitis
#Bloody to nonbloody diarrhea
#Hx recurrent MDR ESBL-Ecoli UTI
-GI and ID following
- Per GI:
- Okay with CLD, defer from advancing today
- C Diff (-), cryptosporidium/giardia (-), follow-up stool culture
- Continue IV Zosyn 3.375 mg q 6 hours, (ID agrees)
--- If stool culture reveals Shiga toxin producing organism, stop antibiotics immediately
- Continue IV fluids
- Follow-up with her primary Cable Wirer as an outpatient at [place]
- Continue Bentyl 20 mg p.o. 4 times daily as needed as needed for spasms/cramps
- Pain control with Tylenol 650 p.o. every 4 hours as needed
- IV Zofran 4 mg every 6 hours PRN
-Per ID:
- Follow-up on norovirus
- Consider Aeromonas vs vibrio parahaemolyticus gasteroenteritis
- Can continue Zosyn for now, consider de-escalating to ceftriaxone when clinically deemed
- Place in contact isolation
#New murmur
On 06/26/2025 provider heard systolic murmur. Patient reports that she has never been told that she has a murmur. In setting of infection and previous history as well as immunocompromised state, there is possibility of endocarditis, although low
clinical concern.
- Consider inpatient versus outpatient echo.
#History of CLL on IVIG infusions
-Continue home Lynparza
- Trend hemoglobin, 11.7 back 12.5 back 13.8
#Hypertension
- Continue home lisinopril 5 mg p.o. daily
#Allergies
- Continue home Claritin 10 mg p.o. daily
#Depression
- Continue home Wellbutrin XL 150 mg daily
Anticipated Discharge: 24 - 48 hours (Pending clinical improvement)
Subjective/Interval History
-
Date of Service: June 26, 2025
Ms. Hightower is a 75 y.o female with a history of CLL on IVIG, recurrent UTI and pyelonephritis with antibiotic resistant E. coli for which she was hospitalized in November 2024 and follows with outpatient ID in the [facility], who
presented to the ED on 06/25/2025 with nausea, vomiting, hematochezia, and initially bloody diarrhea, likely a sequela of infectious colitis currently being managed with IV Zosyn while stool cultures pend and supportive care with antiemetics and
dicyclomine. Of note the etiology of her colitis is unknown, but there is high suspicion for infectious versus ischemic based on CT abdomen pelvis in the ED as well as patient's history of ingesting water in the [place]. GI and ID are
following.
She had 2 bloody BMs overnight, and this morning, had some stool incontinence which was nonbloody, brownish in color
This morning she reports a headache and requests Tylenol
Continues to report low appetite and does not wish to advance diet at this time
Daughter was on rounds bedside during which patient reports feeling better pain weeks today
Objective Data
-
Labs:
Laboratory Results
06/26/25
06:53
WBC 22.2 H
Hgb 11.7 L
Hct 33.9 L
Plt Count 142
Sodium 134 L
Potassium 3.6
Chloride 108 H
Carbon Dioxide 23
BUN 4 L
Creatinine 0.6
Glucose 148 H
Calcium 7.7 L
Total Bilirubin 0.9
AST 23
ALT 18
Alkaline Phosphatase 34 L
Vital Signs:
Vital Signs
Temp Pulse Resp BP Pulse Ox
98.8 F 66 16 141/73 93
06/26/25 07:30 06/26/25 09:41 06/26/25 07:30 06/26/25 09:41 06/26/25 07:30
I&O
06/25/25 06/26/25 06/27/25
06:59 06:59 06:59
Intake Total 1020 / 1020
Balance 1020 / 1020
Review of Systems
-
History Source: Patient
Constitutional: Reports No Appetite
EENT: Reports No Symptoms Reported
Respiratory: Reports No Symptoms
Cardiac: Reports No Symptoms
Abdomen/GI: Reports Diarrhea and Anorexia (Nonbloody, brownish in color)
Breast: Reports No Symptoms
Genitourinary: Reports No Symptoms
Musculoskeletal: Reports No Symptoms
Skin: Reports No Symptoms
Neuro: Reports No Symptoms
Endocrine: Reports No Symptoms
Hematologic / Lymphatic: Reports No Symptoms
Allergy / Immunology: Reports No Symptoms
Physical Exam
-
General: Well Developed, No Apparent Distress and Conversant
HEENT: Normocephalic, Atraumatic, Moist Mucous Membranes and PERRLA
Respiratory: Clear to Auscultation
Cardiac: Regular Rhythm, S1/S2 and Murmur (Systolic murmur heard, pt reports she's never been told about it)
GI: Soft, Normal Bowel Sounds and Distended
Rectal: Deferred by Provider
Musculoskeletal: No Clubbing
Skin: Warm and Dry
Neuro: Awake, Alert, Oriented and AO x 3
Psych: Calm
Data Reviewed
-
CT Scan: Report Reviewed by me and Discussed with Physician
Labs: Labs Reviewed by me and Discussed with Physician
Consultation - Infectious Dis.
Past History
Allergy History:
No Known Allergies Allergy (Unverified 06/24/25 20:47)
Vital Signs
Temp Pulse Resp BP Pulse Ox
98.8 F 66 16 141/73 93
06/26/25 07:30 06/26/25 09:41 06/26/25 07:30 06/26/25 09:41 06/26/25 07:30
Lab / Diagnostic Study Results
06/26/25 06:53
06/26/25 06:53
Abs Immat Gran (auto) 0.2 10^3/uL (0-0.05) H 06/24/25 21:39
Absolute Neuts (auto) 5.7 10^3/uL (1.4-6.5) 06/24/25 21:39
Absolute Lymphs (auto) 14.9 10^3/uL (1.2-3.4) H 06/24/25 21:39
Absolute Monos (auto) 4.8 10^3/uL (0.1-0.6) H 06/24/25 21:39
Absolute Basos (auto) 0.1 10^3/uL (0-0.2) 06/24/25 21:39
Total Counted 100 06/26/25 06:53
Immature Gran % 0.6 % (0-0.5) H 06/24/25 21:39
Neutrophils % 22.1 % (42.2-75.2) L 06/24/25 21:39
Lymphocytes % 58.3 % (20.5-51.1) H 06/24/25 21:39
Monocytes % 18.6 % (1.7-9.3) H 06/24/25 21:39
Eosinophils % 0.1 % (0-6) 06/24/25 21:39
Basophils % 0.3 % (0-2) 06/24/25 21:39
Abs Neuts (Manual) 13.5 10^3/uL (1.4-6.5) H 06/26/25 06:53
Segmented Neutrophils 60 % (42-75) 06/26/25 06:53
Band Neutrophils 1 % (0-3) 06/26/25 06:53
Lymphocytes (Manual) 32 % (20-51) 06/26/25 06:53
Lactic Acid Cancelled 06/25/25 05:30
Ur Squamous Epith Cells 3-5 /LPF (Few) 06/25/25 09:39
Microbiology Results
Micro:
06/25/25 22:18 C. difficile GDH Antigen & Toxins - Final
Feces/Stool Negative for toxigenic C.difficile
- Pending
06/24/25 22:18 Salmonella/Shigella Culture - Preliminary
Feces/Stool Culture in Progress
Campylobacter Culture - Preliminary
Culture in Progress
Shiga Toxin Test - Final
No E. coli Shiga Toxin 1 or 2 detected.
06/24/25 22:18 Cryptosporidium/Giardia - Final
Feces/Stool Negative for Cryptosporidium and/or Giardia Lamblia
antigens.
06/25/25 CT a/p: Wall thickening and enhancement diffusely involving the colon, greatest involvement from the splenic flexure through the sigmoid colon. Findings suggest colitis, most likely infectious colitis. Inflammatory bowel disease would be the
main differential consideration. Patchy areas of decreased enhancement within the right kidney, highly suggestive of pyelonephritis. No evidence for abscess.
[2025-06-26 15:55] VITALS: BP 125/67
[2025-06-26 23:16] VITALS: BP 123/67
[2025-06-27] MEDS: TYLENOL 650 MG PO (00:02)
--- NOTE | 2025-06-27 05:58 | W.PN.GI.CBS2 ---
Today's Communication / Plan
-
Ongoing improving symptoms without any further bloody stools. May ADAT to low-fiber, low-residue diet. Defer antibiotics to ID but favor at least an empiric 7 to 10 day course. No plans for a colonoscopy and advised f/u with her primary GI as an
outpatient. See rest of care as outlined below. GI will sign-off, please recontact with any questions or concerns.
Assessment / Plan
-
Ms. Hightower is a 75 y.o female with a past medical history significant for CLL who presented to the ED with abdominal pain along with nausea/vomiting and initially non-bloody diarrhea. Found to have pancolitis with greatest involvement from the
splenic flexure to the sigmoid colon concerning for infectious colitis. Gastroenterology has been consulted for further evaluation and management.
#Pancolitis likely 2/2
#Acute Infectious and #Ischemic
#Bloody Stools
#Nausea/Vomiting
#Hx of CLL (on IVIG Infusions)
#Hx of Resistant E coli (f/w ID)
Impression: Patient presenting with abdominal cramping/discomfort along with nausea/vomiting and initial nonbloody, watery diarrhea found to have pancolitis on CT imaging concerning for acute, infectious colitis. Now with recent progression of
bloody stools along with abdominal cramping. Etiology of symptoms seems most consistent with infectious colitis likely secondary to her prior swimming [place] the [place] yesterday afternoon and much less likely related to contaminated food as
without any other sick contacts. Additionally, suspect some component of superimposed ischemic colitis as well given the progression of bloody stools and she was hypotensive when evaluated by EMS on arrival along with her CT imaging demonstrating
marked thickening within the splenic flexure further suggestive of potential ischemic component given watershed involvement of splenic flexure. No concern for inflammatory bowel disease as without any chronicity of symptoms and she previously notes
a prior colonoscopy approximately 2 months ago which was normal at [facility]. For now, I would continue empiric IV antibiotics as she is somewhat immunosuppressed given her history of his CLL and receives monthly IVIG infusions. Favor
broadening to IV Zosyn along with continuing IVF to maintain euvolemia and avoiding periods of hypotension.
Stool studies: (-) C Diff, (-) Norovirus, (-) Cryptosporidium/Giardia, (-) E coli shiga toxin, and stool cultures (-). Remains on IV Zosyn with down-trending leukocytosis and without any further bloody stools.
Recommendations:
- May advance diet as tolerated to low-fiber, low-residue diet
- C Diff (-), cryptosporidium/giardia (-), along with (-) stool culture
- Agree with IV abx given her marked leukocytosis, age and some concern for immunocompromise given her hx of CLL and receives IVIG infusions
- Continue empiric IV antibiotics as per ID and favor a 7 to 10 day total course
- Continue IVF to maintain euvolemia as needed and avoid periods of hypotension given c/f superimposed ischemic colitis
- No plans for a colonoscopy at this time and previous colonoscopy was normal approximately 2-3 months ago at [facility]
- She may follow-up with her primary Cosmetic Dentist as an outpatient at [place]
- May use oral Bentyl as needed for spasms/cramps
- Pain control and IV anti-emetics PRN
- Rest of ongoing supportive care as per primary team
Discussed with primary internal medicine team. GI will sign-off, please recontact with any questions or concerns.
Subjective
Subjective
Date of Service: June 27, 2025
- Stool studies: (-) C Diff, (-) Norovirus, (-) Cryptosporidium/Giardia, (-) E coli shiga toxin, and stool cultures (-)
- Remains on IV Zosyn with down-trending leukocytosis
- No acute events overnight
Feeling better this AM, having less abdominal pain/discomfort. No further bloody stools, although still with some diarrhea. No further nausea/vomiting. Hungry and hoping to eat more solid food later today. No other fevers or chills.
Objective
Data Reviewed
Laboratory Data:
Laboratory Results
06/26/25 06:53
07/28/25 06:53
Laboratory Results
Total Bilirubin 0.9 mg/dl (0.2-1.3) 06/26/25 06:53
AST 23 U/L (14-36) 06/26/25 06:53
ALT 18 U/L (0-35) 06/26/25 06:53
Alkaline Phosphatase 34 U/L (38-126) L 06/26/25 06:53
Vital Signs and I&O:
Vital Signs
Temp Pulse Resp BP Pulse Ox
97.9 F 64 17 123/67 93
06/26/25 23:16 06/26/25 23:16 06/26/25 23:16 06/26/25 23:16 06/26/25 23:16
I&O
06/25/25 06/26/25 06/27/25
06:59 06:59 06:59
Intake Total 1020 / 1020 1440 / 1440
Balance 1020 / 1020 1440 / 1440
Physical Exam
Physical Exam
HEENT: Anicteric and Moist mucous membranes
Pulmonary: Other (Normal WOB on room air)
GI: Soft, Non Distended and Tender (Mild tenderness on palpation throughout)
Extremities: No Edema
Neuro: Non Focal
[2025-06-27] MEDS: ZOSYN 100 IV (06:17)
[2025-06-27 07:43] VITALS: BP 128/66
[2025-06-27 08:38] LABS: Magnesium 2.0 mg/dl (1.6-2.3)
[2025-06-27] MEDS: PROTONIX 40 MG PO (08:51)
[2025-06-27] MEDS: WELLBUTRIN XL (24 hour extended release) 150 MG PO (08:51)
[2025-06-27] MEDS: ZESTRIL 5 MG PO (08:51)
[2025-06-27] MEDS: CLARITIN 10 MG PO (08:51)
[2025-06-27 08:56] LABS: ALT (SGPT) 18 U/L (0-35); AST (SGOT) 23 U/L (14-36); Albumin 3.2 g/dl (3.5-5.0); Alkaline Phosphatase 38 U/L (38-126); Blood Urea Nitrogen < 2 mg/dl (7-17); Calcium 7.8 mg/dl (8.4-10.2); Carbon Dioxide 26 mmol/L (22-30); Chloride 106 mmol/L (98-107); Estimated Creatinine Clearance 74 ml/min; Glucose 118 mg/dl (70-99); Potassium 3.2 mmol/L (3.5-5.1); Sodium 136 mmol/L (135-145); Total Protein 5.5 g/dl (6.3-8.2); eGFR > 60.00
[2025-06-27 09:01] LABS: Hematocrit 33.3 % (37.0-47.0); Hemoglobin 11.2 g/dL (12.0-16.0); Mean Corp Hgb Conc. 33.6 g/dL (33.0-37.0); Mean Corpuscular Volume 90.5 fL (81.0-99.0); Platelet Count 141 10^3/uL (130-400); Red Cell Dist. Width 13.9 % (11.5-14.5)
[2025-06-27 09:48] LABS: Nucleated Red Blood Cells % 0 %
[2025-06-27] MEDS: KCL 40 MEQ PO (10:11)
--- NOTE | 2025-06-27 11:13 | W.PN.ID1 ---
Date of Service
Date of Service: June 27, 2025
Today's Communication
Transition zosyn to azithromycin x 3d.
Assessment / Plan
# Pancolitis/gastroenteritis - improving
# N/V, Bloody diarrhea - improving
# Relative leukocytosis - improving
# Hx of CLL on monthly IVIg
- C. diff neg, norvirus, neg
- Shiga-toxin negative
- Stool cx negative including Salmonella, Shigella, Campylobacter, Aeromonas
- DC Zosyn
- De-escalate to Azithromycin 500mg po qd x 3 days
# Hx recurrent MDR ESBL-Ecoli UTI
- currently no urine sxs, no flank pain - does not correlate with CT finding of right 'pyelonephritis'
- UA negative
- of note, gastroenteritis is not associated with ESBL-Ecoli
- Continue contact isolation
Chief Complaint
-: Other (Diarrhea)
Subjective / Review of Systems
Feeling better today. Diarrhea now brown, no blood.
Abdominal pain also improved.
Vital Signs / Physical Exam
Vital Signs
Vital Signs
Temp Pulse Resp BP Pulse Ox
98.1 F 63 16 128/66 94
06/27/25 07:43 06/27/25 08:51 06/27/25 07:43 06/27/25 08:51 06/27/25 07:43
Physical Exam
Constitutional: No Acute Distress and Non-toxic
Cardiovascular: Regular Rate and S1/S2
Gastrointestinal: Soft, Tender (mild diffuse) and Distended (mild)
Genito-Urinary: Negative CVA Tenderness
Extremities: Negative Edema
Neurological: AO x 3
Objective Data
Lab Data
Lab Results
06/27/25 08:03
06/27/25 08:39
Estimated Creat Clear Cancelled 06/27/25 08:39
Lactic Acid Cancelled 06/25/25 05:30
Total Bilirubin Cancelled 06/27/25 08:39
AST Cancelled 06/27/25 08:39
ALT Cancelled 06/27/25 08:39
Alkaline Phosphatase Cancelled 06/27/25 08:39
Most recent labs reviewed.
Micro Results:
06/24/25 22:18 Salmonella/Shigella Culture - Final
Feces/Stool No Salmonella, Shigella, Aeromonas or Plesiomonas species
isolated.
Campylobacter Culture - Final
No Campylobacter species isolated.
Shiga Toxin Test - Final
No E. coli Shiga Toxin 1 or 2 detected.
06/25/25 22:18 C. difficile GDH Antigen & Toxins - Final
Feces/Stool Negative for toxigenic C.difficile
- Final
Negative for Norovirus GI and GII.
06/24/25 22:18 Cryptosporidium/Giardia - Final
Feces/Stool Negative for Cryptosporidium and/or Giardia Lamblia
antigens.
06/25/25 CT a/p: Wall thickening and enhancement diffusely involving the colon, greatest involvement from the splenic flexure through the sigmoid colon. Findings suggest colitis, most likely infectious colitis. Inflammatory bowel disease would be the
main differential consideration. Patchy areas of decreased enhancement within the right kidney, highly suggestive of pyelonephritis. No evidence for abscess.
[2025-06-27] MEDS: ZITHROMAX 500 MG PO (11:58)
[2025-06-27] MEDS: ZOFRAN 4 MG IV (14:02)
[2025-06-27 15:24] VITALS: BP 144/77
--- NOTE | 2025-06-27 16:38 | CM ---
Patient seen at bedside with physicians on [address]. Patient plan is for discharge home with VN vs no VN, possible discharge home tomorrow. CM will continue to follow for discharge planning needs.
Plan;home with VN vs home with no needs.
--- NOTE | 2025-06-27 18:24 | W.PN.HOSP.TC ---
Addendum entered and electronically signed by Ashley Velasquez MD 06/27/25 20:43:
I saw and evaluated the patient independently. I reviewed the resident�s note and agree with findings and plan as documented by Dr. Escalera.
GENERAL: well developed, well nourished, female in no apparent distress
HEENT: NC/AT--no O2 requirements
HEART: regular rate and rhythm, +S1, +S2, URMILA
LUNGS : clear to auscultation bilaterally
ABDOM: soft, tender diffusely without guarding or rebound, nondistended, + bowel sounds
EXT: no cyanosis, clubbing, or edema
NEUROLOGIC: grossly intact
abdominal pain--likely due to Acute infectious colitis (from ingesting river water), less likely food borne since everyone ate the same thing and no one else sick, ischemic colitis since BP dropped and greatest involvement from the splenic flexure
through the sigmoid colon (watershed area)--presenting with bloody diarrhea at times--apprec GI/ID--advance diet as tolerated--IV zosyn to oral zithromax--all stool studies negative--pain control--bentyl as needed for spasms--will need outpt GI
follow up with primary GI
Hx recurrent MDR ESBL E. coli UTI--GI and ID following
New murmur--pt has never been told of one--will need outpt ECHO
History of CLL on IVIG infusions--Continue home Lynparza
Essential Hypertension-- Continue home lisinopril
Allergies- Continue home Claritin 10 mg p.o. daily
Depression-- Continue home Wellbutrin XL 150 mg daily
DVT proph
code status -- FULL CODE
Original Note:
Today's Communication/Plan
-
Continue antibiotics
Continue to advance diet as tolerated supporting with antiemetics as needed
Assessment / Plan
Assessment / Plan
Ms. Hightower is a 75 y.o female with a history of hypertension, CLL on IVIG, recurrent UTI and pyelonephritis with antibiotic resistant E. coli for which she was hospitalized in November 2024 and follows with outpatient ID in the [facility]
system. She presented to the ED on 06/25/2025 with nausea, vomiting, hematochezia, and initially bloody diarrhea, and CT abdomen/pelvis concerning for infectious colitis in the setting of her recent ingestion of [place] river water. She was
initially started on IV ceftriaxone and Flagyl upon arrival and then transition to IV Zosyn per GI, who was following care. Stool cultures are pending and we are providing supportive care with antiemetics and dicyclomine. Of note patient had a
normal colonoscopy 2 months ago at [facility] and per ID, gastroenteritis is not associated with ESBL E. coli. given patient's history of pyelonephritis by ESBL-E coli, ID was consulted on 06/26/2025 for further recs. Physical exam today
showed a systolic murmur that was new to the patient's knowledge. Given immunocompromise status and infectious of unknown etiology, we will consider inpatient versus outpatient echo for concern of endocarditis if she does not improve.
#Acute infectious colitis
#Bloody to nonbloody diarrhea
#Hx recurrent MDR ESBL-Ecoli UTI
-GI and ID following
- Per GI:
- Advance diet to low residue low fiber
- C Diff (-), cryptosporidium/giardia (-), stool cultures negative
- Discontinued IV Zosyn 3.375 mg q 6 hours, (ID agrees), started azithromycin 500 mg p.o. for 3 days (06/27/2025 - 06/30/2025)
--- If stool culture reveals Shiga toxin producing organism, stop antibiotics immediately
- Continue IV fluids
- Follow-up with her primary Colorist Formulator as an outpatient at [place]
- Continue Bentyl 20 mg p.o. 4 times daily as needed as needed for spasms/cramps
- Pain control with Tylenol 650 p.o. every 4 hours as needed
- IV Zofran 4 mg every 6 hours PRN
-Per ID:
- Norovirus negative
- Consider Aeromonas vs vibrio parahaemolyticus gasteroenteritis
- Continue contact isolation
#New murmur
On 06/26/2025 provider heard systolic murmur. Patient reports that she has never been told that she has a murmur. In setting of infection and previous history as well as immunocompromised state, there is possibility of endocarditis, although low
clinical concern.
- Follow-up with PCP for outpatient echo
#History of CLL on IVIG infusions
-Continue home Lynparza
- Trend hemoglobin, 11.2 back 11.7 back 12.5 back 13.8
#Hypertension
- Continue home lisinopril 5 mg p.o. daily
#Allergies
- Continue home Claritin 10 mg p.o. daily
#Depression
- Continue home Wellbutrin XL 150 mg daily
Anticipated Discharge: Within 24 hours (If patient feels they can tolerate)
Subjective/Interval History
-
Date of Service: June 27, 2025
Ms. Hightower is a 75 y.o female with a history of CLL on IVIG, recurrent UTI and pyelonephritis with antibiotic resistant E. coli for which she was hospitalized in November 2024 and follows with outpatient ID in the [facility], who
presented to the ED on 06/25/2025 with nausea, vomiting, hematochezia, and initially bloody diarrhea, suspected sequela of infectious colitis initially being managed with IV Zosyn now on azithromycin p.o. and supportive care with antiemetics and
dicyclomine.� Of note the etiology of her colitis remains unknown. GI and ID are following.
OE:
This morning she reports less pain and spasms, not needing Bentyl as often
She continues to have liquidy brown stools
Supplemented K for 3.2
She has a better appetite today and would like to eat, Per GI okay to advance diet to low residue low fiber
Contact precautions added yesterday
Objective Data
-
Labs:
Laboratory Results
06/27/25 06/27/25
08:03 08:39
WBC 16.3 H
Hgb 11.2 L
Hct 33.3 L
Plt Count 141
Sodium 136 Cancelled
Potassium 3.2 L Cancelled
Chloride 106 Cancelled
Carbon Dioxide 26 Cancelled
BUN < 2 L Cancelled
Creatinine 0.6 Cancelled
Glucose 118 H Cancelled
Calcium 7.8 L Cancelled
Total Bilirubin 0.6 Cancelled
AST 23 Cancelled
ALT 18 Cancelled
Alkaline Phosphatase 38 Cancelled
Vital Signs:
Vital Signs
Temp Pulse Resp BP Pulse Ox
98.8 F 63 16 144/77 97
06/27/25 15:24 06/27/25 15:24 06/27/25 15:24 06/27/25 15:24 06/27/25 15:24
I&O
06/26/25 06/27/25 06/28/25
06:59 06:59 06:59
Intake Total 1020 / 1020 1440 / 1440
Balance 1020 / 1020 1440 / 1440
Review of Systems
-
Constitutional: Reports No Symptoms
Respiratory: Reports No Symptoms
Abdomen/GI: Reports Diarrhea
Genitourinary: Reports No Symptoms
Skin: Reports No Symptoms
Endocrine: Reports No Symptoms
Physical Exam
-
General: Well Developed, Well Nourished, Comfortable and Conversant
HEENT: Normocephalic, Moist Mucous Membranes and PERRLA
Respiratory: Clear to Auscultation
Cardiac: Regular Rhythm, S1/S2 and Murmur (Systolic murmur, new to patient)
GI: Soft and Nontender
Psych: Calm
[2025-06-27 23:28] VITALS: BP 119/62
[2025-06-28 05:13] VITALS: BMI 21.9
[2025-06-28 07:36] VITALS: BP 156/72
[2025-06-28 07:38] LABS: ALT (SGPT) 15 U/L (0-35); AST (SGOT) 17 U/L (14-36); Albumin 3.2 g/dl (3.5-5.0); Alkaline Phosphatase 39 U/L (38-126); Blood Urea Nitrogen 3 mg/dl (7-17); Calcium 8.1 mg/dl (8.4-10.2); Carbon Dioxide 25 mmol/L (22-30); Chloride 108 mmol/L (98-107); Estimated Creatinine Clearance 74 ml/min; Glucose 88 mg/dl (70-99); Magnesium 2.0 mg/dl (1.6-2.3); Potassium 3.5 mmol/L (3.5-5.1); Sodium 136 mmol/L (135-145); Total Protein 5.4 g/dl (6.3-8.2); eGFR > 60.00
[2025-06-28] MEDS: WELLBUTRIN XL (24 hour extended release) 150 MG PO (08:39)
[2025-06-28] MEDS: CLARITIN 10 MG PO (08:39)
[2025-06-28] MEDS: ZITHROMAX 500 MG PO (08:39)
[2025-06-28] MEDS: KCL 40 MEQ PO (08:39)
[2025-06-28] MEDS: PROTONIX 40 MG PO (08:39)
[2025-06-28] MEDS: ZESTRIL 5 MG PO (08:40)
[2025-06-28 09:11] LABS: Hematocrit 30.6 % (37.0-47.0); Hemoglobin 10.5 g/dL (12.0-16.0); Mean Corp Hgb Conc. 34.3 g/dL (33.0-37.0); Mean Corpuscular Volume 90.5 fL (81.0-99.0); Platelet Count 131 10^3/uL (130-400); Red Cell Dist. Width 13.7 % (11.5-14.5)
[2025-06-28 10:02] LABS: Absolute Neutrophils -Man Diff 4.4 10^3/uL (1.4-6.5); Platelets Checked Yes
[2025-06-28 10:03] LABS: Normal RBC Morphology Yes; Total Cells Counted 100
--- NOTE | 2025-06-28 10:43 | W.PN.ID1 ---
Date of Service
Date of Service: June 28, 2025
Today's Communication
Continue Azithromycin.
Agree with clear diet.
Assessment / Plan
# Pancolitis/gastroenteritis - overall improving
# N/V, Bloody diarrhea
# Relative leukocytosis - improving, now at baseline
# Hx of CLL on monthly IVIg
- C. diff neg, norovirus, neg
- Shiga-toxin negative
- Stool cx negative including Salmonella, Shigella, Campylobacter, Aeromonas
- Had 2 episodes of bloody mucous from rectum this am. Discusses with patient, expected to have residual blood.
Her colon is very inflamed and it will take time for intestinal lining to replenish. Perhaps the little bit of advanced diet yesterday may have irritated the inflamed colon leading to recurrence of bloody stool. She is not back on clears.
Explained that gastroenteritis is often self-limited. She is overall improving with resolution of relative leukocytosis, resolving of previous severe diffuse abd pain, and decreased in stool frequency. . At this time I do not recommend broadening
antibiotic (risks outweigh benefit).
- Continue Azithromycin 500mg po qd (d2 of 3; 6 days total abx course.)
# Hx recurrent MDR ESBL-Ecoli UTI
- currently no urine sxs, no flank pain - does not correlate with CT finding of right 'pyelonephritis'
- UA negative
- of note, gastroenteritis is not associated with ESBL-Ecoli
- Continue contact isolation
Chief Complaint
-: Other (Diarrhea)
Subjective / Review of Systems
Patient reports no BM yesterday. Had 3 tablespoons of egg salad, carrots for lunch which mildly upset her abdomen. For dinner, had toast and broth. This am had 2 episodes of mucous bloody output.
No further abd cramping.
Vital Signs / Physical Exam
Vital Signs
Vital Signs
Temp Pulse Resp BP Pulse Ox
98.4 F 62 18 156/72 97
06/28/25 07:36 06/28/25 08:40 06/28/25 07:36 06/28/25 08:40 06/28/25 07:36
Physical Exam
Constitutional: No Acute Distress and Comfortable
Eyes: No Conjunctival Hemorrhage and Sclera Anicteric
Cardiovascular: Regular Rate and S1/S2
Pulmonary: Clear
Gastrointestinal: Soft, Non Tender, Distended (mild) and Normal Bowel Sounds
Genito-Urinary: Negative CVA Tenderness
Extremities: Negative Edema
Neurological: AO x 3
Objective Data
Lab Data
Lab Results
06/28/25 06:42
06/28/25 06:41
Estimated Creat Clear 74 ml/min 06/28/25 06:41
Lactic Acid Cancelled 06/25/25 05:30
Total Bilirubin 0.4 mg/dl (0.2-1.3) 06/28/25 06:41
AST 17 U/L (14-36) 06/28/25 06:41
ALT 15 U/L (0-35) 06/28/25 06:41
Alkaline Phosphatase 39 U/L (38-126) 06/28/25 06:41
Most recent labs reviewed.
Micro Results:
06/24/25 22:18 Salmonella/Shigella Culture - Final
Feces/Stool No Salmonella, Shigella, Aeromonas or Plesiomonas species
isolated.
Campylobacter Culture - Final
No Campylobacter species isolated.
Shiga Toxin Test - Final
No E. coli Shiga Toxin 1 or 2 detected.
06/25/25 22:18 C. difficile GDH Antigen & Toxins - Final
Feces/Stool Negative for toxigenic C.difficile
- Final
Negative for Norovirus GI and GII.
06/24/25 22:18 Cryptosporidium/Giardia - Final
Feces/Stool Negative for Cryptosporidium and/or Giardia Lamblia
antigens.
06/25/25 CT a/p: Wall thickening and enhancement diffusely involving the colon, greatest involvement from the splenic flexure through the sigmoid colon. Findings suggest colitis, most likely infectious colitis. Inflammatory bowel disease would be the
main differential consideration. Patchy areas of decreased enhancement within the right kidney, highly suggestive of pyelonephritis. No evidence for abscess.
Care Review
Plan reviewed with: Physician (Dr Velasquez and team)
[2025-06-28 15:12] VITALS: BP 138/74
--- NOTE | 2025-06-28 15:13 | CM ---
Addendum entered by Elizabeth Disla 06/28/25 15:20:
Pharmacy updated to [facility], [place]. Physician updated.
Original Note:
Patient seen at bedside with physicians on [address]. Patient states that she would like to change her pharmacy per physician, awaiting clarification as to which one. Patient for discharge home today, with family. Patient family for transportation
and IMM completed, signed form placed in chart. CM will continue to follow for discharge planning needs.
Plan; home with follow up to PCP.
--- NOTE | 2025-06-28 16:02 | W.PN.HOSP.TC ---
Addendum entered and electronically signed by Ashley Velasquez MD 06/28/25 16:21:
I saw and evaluated the patient independently. I reviewed the resident�s note and agree with findings and plan as documented by Dr. Escalera.
GENERAL: well developed, well nourished, female in no apparent distress
HEENT: NC/AT--no O2 requirements
HEART: regular rate and rhythm, +S1, +S2, URMILA
LUNGS : clear to auscultation bilaterally
ABDOM: soft, tender diffusely without guarding or rebound, nondistended, + bowel sounds
EXT: no cyanosis, clubbing, or edema
NEUROLOGIC: grossly intact
abdominal pain--likely due to Acute infectious colitis (from ingesting river water), less likely food borne since everyone ate the same thing and no one else sick, ischemic colitis since BP dropped and greatest involvement from the splenic flexure
through the sigmoid colon (watershed area)--presenting with bloody diarrhea at times--apprec GI/ID--advance diet as tolerated--finish zithromax--all stool studies negative--pain control--bentyl as needed for spasms--will need outpt GI follow up with
primary GI
Hx recurrent MDR ESBL E. coli UTI--GI and ID following
New murmur--pt has never been told of one--will need outpt ECHO
History of CLL on IVIG infusions--Continue home Lynparza
Essential Hypertension-- Continue home lisinopril
Allergies- Continue home Claritin 10 mg p.o. daily
Depression-- Continue home Wellbutrin XL 150 mg daily
DVT proph
code status -- FULL CODE
doing well after lunch--wants to go home--OK for d/c
Original Note:
Today's Communication/Plan
-
Continue azithromycin course at home
Follow-up outpatient echo
Follow-up with PCP, GI, Endo as per discharge summary instructions
Assessment / Plan
Assessment / Plan
Ms. Hightower is a 75 y.o female with a history of hypertension, CLL on IVIG, recurrent UTI and pyelonephritis with antibiotic resistant E. coli for which she was hospitalized in November 2024 and follows with outpatient ID in the [facility]
system. She presented to the ED on 06/25/2025 with nausea, vomiting, hematochezia, and initially bloody diarrhea, and CT abdomen/pelvis concerning for infectious colitis in the setting of her recent ingestion of [place] river water. She was
initially started on IV ceftriaxone and Flagyl upon arrival and then transition to IV Zosyn per GI, who was following care. Stool cultures were negative. We are providing supportive care with antiemetics and dicyclomine. Of note patient had a
normal colonoscopy 2 months ago at [facility] and per ID, gastroenteritis is not associated with ESBL E. coli. given patient's history of pyelonephritis by ESBL-E coli, ID was consulted on 06/26/2025 for further recs. Physical exam today
showed a systolic murmur that was new to the patient's knowledge. Given immunocompromise status and infectious of unknown etiology but improving clinical status inpatient, we will refer for outpatient echo.
#Acute infectious colitis
#Bloody to nonbloody diarrhea
#Hx recurrent MDR ESBL-Ecoli UTI
-GI and ID following
- Per GI:
- Tolerated low residue, low fiber diet well today. Upon discharge we recommend she continues this for 4 days and advance as tolerated.
- C Diff (-), cryptosporidium/giardia (-), stool cultures negative
- IV Zosyn 3.375 mg q 6 hours (06/24/2025 to 06/27/2025), azithromycin 500 mg p.o. for 3 days (06/27/2025 - 06/30/2025)
--- If stool culture reveals Shiga toxin producing organism, stop antibiotics immediately
- Continue IV fluids
- Follow-up with her primary Experimental Assembler as an outpatient at [place]
- Bentyl 20 mg p.o. 4 times daily as needed as needed for spasms/cramps
- Pain control with Tylenol 650 p.o. every 4 hours as needed
- IV Zofran 4 mg every 6 hours PRN
-Per ID:
- Norovirus negative
- Consider Aeromonas vs vibrio parahaemolyticus gasteroenteritis
- Continue contact isolation
#New murmur
On 06/26/2025 provider heard systolic murmur. Patient reports that she has never been told that she has a murmur. In setting of infection and previous history as well as immunocompromised state, there is possibility of endocarditis, although low
clinical concern.
- Follow-up with PCP for outpatient echo
#History of CLL on IVIG infusions
-Continue home Lynparza
- Trend hemoglobin, 10.5 back 11.2 back 11.7 back 12.5 back 13.8
#Hypertension
- Continue home lisinopril 5 mg p.o. daily
#Allergies
- Continue home Claritin 10 mg p.o. daily
#Depression
- Continue home Wellbutrin XL 150 mg daily
Anticipated Discharge: Today
Subjective/Interval History
-
Date of Service: June 28, 2025
Ms. Hightower is a 75 y.o female with a history of CLL on IVIG, recurrent UTI and pyelonephritis with antibiotic resistant E. coli for which she was hospitalized in November 2024 and follows with outpatient ID in the [facility], who
presented to the ED on 06/25/2025 with nausea, vomiting, hematochezia, and initially bloody diarrhea, suspected sequela of infectious colitis initially being managed with IV Zosyn now on azithromycin p.o. (day 2 of 3) and supportive care with
antiemetics and dicyclomine.� Of note the etiology of her colitis remains unknown. GI and ID are following.
- This morning she had bloody mucus stool, and saved pads for us to see. She feels really upset that this is a setback given that she had brown liquid stools prior. We reassured her that she is clinically improving and this may be normal course.
- Yesterday she had eggs solid and steamed carrots for lunch on low residue diet, but needed Zofran to support. For dinner she had rice and broth that she tolerated well. We encouraged her to continue trying different foods today, and she had good
success with chicken breast and saltine crackers.
- After rounds around 3 PM, I checked back in with her and she felt that she was okay to go home with current diet regimen. GI and ID were okay with that.
Objective Data
-
Labs:
Laboratory Results
06/28/25 06/28/25
06:41 06:42
WBC 13.2 H
Hgb 10.5 L
Hct 30.6 L
Plt Count 131
Sodium 136
Potassium 3.5
Chloride 108 H
Carbon Dioxide 25
BUN 3 L
Creatinine 0.5 L
Glucose 88
Calcium 8.1 L
Total Bilirubin 0.4
AST 17
ALT 15
Alkaline Phosphatase 39
Vital Signs:
Vital Signs
Temp Pulse Resp BP Pulse Ox
98.4 F 62 18 156/72 97
06/28/25 07:36 06/28/25 08:40 06/28/25 07:36 06/28/25 08:40 06/28/25 07:36
I&O
06/27/25 06/28/25 06/29/25
06:59 06:59 06:59
Intake Total 1440 / 1440 480 / 480
Balance 1440 / 1440 480 / 480
Review of Systems
-
Constitutional: Reports No Symptoms
EENT: Reports No Symptoms Reported
Respiratory: Reports No Symptoms
Cardiac: Reports No Symptoms
Abdomen/GI: Reports Bloated
Genitourinary: Reports No Symptoms
Skin: Reports No Symptoms
Endocrine: Reports No Symptoms
Hematologic / Lymphatic: Reports No Symptoms
Physical Exam
-
General: Well Developed, Well Nourished, No Apparent Distress, Comfortable and Conversant
HEENT: Normocephalic, Atraumatic and Moist Mucous Membranes
Respiratory: Clear to Auscultation and Non Labored Respirations
Cardiac: Regular Rhythm, S1/S2 and Murmur (Systolic murmur as noted previously)
GI: Soft, Nontender and Nondistended
Musculoskeletal: No Clubbing and No Cyanosis
Skin: Warm and Dry
Psych: Calm
--- NOTE | 2025-06-28 18:40 | W.DCSUMMARY ---
Addendum entered and electronically signed by Ashley Velasquez MD 06/28/25 19:09:
Read, reviewed, and agree. See same day progress note for additional details. Time spent coordinating care, DC planning, review of DC plan of care with resident, transition of care, review of records in EMR, med rec, consults, notes, d/w
consultants, nursing, family, and CM= 38 minutes
Original Note:
Discharge Summary
Discharge Data
Date of Admission: 06/25/25
Date of Discharge: 06/28/25
-
Pending Results: No
Hospital Course
Discharging Physician : Isaac Escalera MD/OLIVIA
Disposition : Home
Principal Discharge diagnosis :
Acute Infectious Colitis, unknown etiology
Bloody diarrhea
New systolic murmur
Hospital Course : Ms. Hightower is a 75 y.o female with a history of CLL on IVIG (most recent infusion earlier this week), recurrent UTI and pyelonephritis with antibiotic resistant E. coli for which she was hospitalized in November 2024 and follows
with outpatient ID in the [facility], who presented to the ED on 06/25/2025 with crampy abdominal pain, nausea, vomiting, diarrhea, hematochezia, and initially bloody diarrhea, suspected sequela of infectious colitis. She stated that
she was feeling well until that evening but started to feel ill after dinner around 7:30 PM. Her daughter called 911 when her mom was in the bathroom with nausea, nonbloody emesis, and nonbloody watery diarrhea. At that time she felt lightheaded
and diaphoretic. It was also noted that she went [place] earlier in the day, and she ingested some water there. This was done with the same group of friends who she had dinner with. Of note, none of them felt ill. In the
ED, patient was afebrile and HD-stable. Labs notable for BUN 21 and Pricing Analyst 0.9 and normal LFTs. CBC with WBC 25.6 (per patient, baseline is 12 iso CLL), Hgb 13.8, and plts 210. CT Abd/pelvis revealed wall thickening and enhancement diffusely involving
the colon, greatest involvement from the splenic flexure through the sigmoid colon. Findings suggested colitis, most likely infectious colitis. Additionally, patchy areas of decreased enhancement within the right kidney, highly suggestive of
pyelonephritis without any evidence for abscess. Stool studies were obtained and patient was started on empiric IV abx, GI was consulted, and she was admitted to medicine for further management. GI broadened her antibiotics to IV Zosyn 3.375 mg
every 6 hours on 06/25/2025 and placed her on clear liquid diet. Her pain was controlled with Bentyl, antiemetics as needed, and IV fluids.
Over her hospital course, her stool cultures, C. difficile, Cryptosporidium/Giardia, and norovirus were all negative. In the interim her diarrhea auscultated between bloody and brown liquidy. ID was consulted for further evaluation and recs. Per
ID, Ms. Mcdonald was placed on contact precautions and supportive care alongside IV Zosyn was continued. On 06/27/2025, per GI, her diet was advanced from clear liquid diet to low residue low fiber diet and per ID, she was transition from IV Zosyn to
azithromycin 500 mg p.o for 3-day course. Ms. Mcdonald ordered eggs solid and steamed carrots for lunch that day, however she needed Zofran to support that meal and return to clear liquids for dinner that night. On the morning of 06/28/2025, she had
mucousy and bloody diarrhea, however was clinically stable and improving. In discussion with Ms. Mcdonald, GI, ID, we continue to encourage p.o. intake and with the same antibiotic regimen. Later in the day, Ms. Mcdonald was able to tolerate chicken
with saltine crackers and was having brown stools. She felt comfortable going home and was clinically stable to do so. She was instructed to finish her azithromycin 500 mg p.o. 3-day course at home, repeat CBC to trend hemoglobin in a week, to
follow-up with her PCP within a week, to follow-up with GI and ID within 2 to 4 weeks, and to use Bentyl as needed if muscle spasms were to return.
Important imaging findings : CT Abd/pel W Iv And Oral Contr
EXAMINATION: CT of the abdomen and pelvis with oral and intravenous contrast
IMPRESSION: Wall thickening and enhancement diffusely involving the colon, greatest involvement from the splenic flexure through the sigmoid colon. Findings suggest colitis, most likely infectious colitis. Inflammatory bowel disease would be the
main differential consideration.
Patchy areas of decreased enhancement within the right kidney, highly suggestive of pyelonephritis. No evidence for abscess.
Small amount of free fluid within the pelvis.
2.1 cm fibroid arising from the anterior aspect of the lower uterine segment.
Discharge Plan
-
Patient Disposition: Home (Routine Discharge)
Discharge Diagnosis/Procedures: Acute Infectious Colitis, unknown etiology
Bloody diarrhea
New systolic murmur
Condition: Fair
Diet: Low Residue
Additional Diets: Continue low residue, low fiber diet for 4 days and then advance slowly as tolerated
Activity: No restrictions
Driving Restrictions: As prior to admission
Bathing Restrictions: None
Blood Work: Repeat CBC with differential in 1 week, all others per PCP and specialist
Others Tests: Schedule Echocardiogram outpatient per PCP
Referrals:
Enmanuel Huertas, DO [Active, Gastroenterology] - in two to four weeks
Referral Note: Please follow-up with GI for infectious colitis of unknown etiology in 2 to 4 weeks.
UNKNOWN - PT DOES,NOT KNOW [Family Provider, Infectious Diseases] - in two to four weeks
Referral Note: Please follow-up with your ID physician Dr. Heredia in 2-4 weeks.
Additional Discharge Medication Instructions: You were transitioned from IV Zosyn to oral Azithromycin 500 mg daily on 06/27/2025. Please finish the 3 day Azithromycin 500 mg course at home with your last dose on 06/30/2025.
You may take dicyclomine 20 mg for stomach spasms if they recurr in the interim.
Please follow up with your ID physician, GI (referral placed and they will guide you), and your PCP. Follow up with your PCP should be within a week of discharge. Please have them schedule your echocardiogram outpatient.
Prescriptions:
New
azithromycin 250 mg Tablet
500 mg PO DAILY 1 Days Qty: 1 0RF
dicyclomine 20 mg Tablet
20 mg PO QIDPRN PRN (Reason: abd cramps) 5 Days Qty: 5 0RF
Continued
bupropion HCl 75 mg Tablet
150 mg PO DAILY
lisinopril 5 mg Tablet
5 mg PO DAILY
loratadine [Claritin] 10 mg Tablet
10 mg PO DAILY
vitamin B complex Capsule
1 cap PO DAILY
Vitamin D3
PO DAILY
alendronate 70 mg tablet
70 mg PO WEEKLY@06
Discharge Orders:
Discharge Patient (As Directed); Ordered 06/28/25
Ordered By: Isaac Escalera
Discharge Date and Time
Discharge Date/Time: 06/28/25 18:30
Print Language: PASHTO
== END 2025-06-28 18:30 | disposition home or self-care (01) | DRG 392 ==
LOC: 2 NORTH 03:25
PROVIDERS: Nurse Practitioner; ADMITTING PHYSICIAN Hospitalist; ATTENDING PHYSICIAN Internal Medicine; CONSULT PHYSICIAN Student in an Organized Health Care Education/Training Program; EMERGENCY PHYSICIAN Emergency Medicine; OTHER PHYSICIAN Internal Medicine Infectious Disease
DX: A09 Infectious gastroenteritis and colitis, unspecified (principal); C91.11 Chronic lymphocytic leukemia of B-cell type in remission; D84.9 Immunodeficiency, unspecified; N12 Tubulo-interstitial nephritis, not specified as acute or chronic; I95.9 Hypotension, unspecified; R01.1 Cardiac murmur, unspecified; I10 Essential (primary) hypertension; F32.A Depression, unspecified; Z87.440 Personal history of urinary (tract) infections
CPT/HCPCS: 74177; 80048; 80053; 81003; 81015; 83605; 83735; 85025; 85027; 87045; 87046; 87324; 87328; 87329; 87427; 87449; 87798; 96361; 96365; 96367; 96375; 99284; Q9967